=== PATIENT | female | born 1995 | race Caucasian/White ===

== ENCOUNTER → 2018-06-08 13:52 | Observation (INO) ==
[2018-06-08 11:19] LABS: Bilirubin,Urine Negative (Negative); Blood,Urine Negative (Negative); Clarity,Urine Clear (Clear); Color,Urine Yellow (Yellow); Glucose,Urine (UA) Normal (Normal); Ketones,Urine Negative (Negative); Leukocyte Esterase,Urine Small (Negative); Nitrite,Urine Negative (Negative); PH,Urine 6.5 pH Units (5.0-8.0); Protein,Urine Negative (Neg-Trace); Specific Gravity,Urine 1.016 (1.010-1.025); Urobilinogen,Urine Normal (Normal)
[2018-06-08 11:21] LABS: Bacteria,Urine Moderate per hpf (None-Few); Hyaline Casts,Urine None Seen per lpf (None-Few); Squamous Epithelial Cell,Urine Many per lpf (None-Few)
--- NOTE | 2018-06-08 13:49 | Discharge Summary ---
Date of Encounter: 06/08/18 Time of Encounter: 13:48 - Discharge Diagnosis (1) 29 weeks gestation of Priority: Primary Status: Chronic (2) Abdominal pain affecting Priority: Secondary Status: Resolved - Discharge Medications Home Medications: Vits96/Iron Fum/Folic [ Tablet] 1 each PO 06/08/18 [History] Allergies/Adverse Reactions: 3 Allergy/AdvReac Type Severity Reaction Status Date / Time No Known Allergies Allergy Verified 12/24/15 20:56 Data Procedures and tests throughout hospitalization: Laboratory Tests 06/08/18 10:42 Urine Color Yellow Urine Clarity Clear Urine pH 6.5 Ur Specific [place] 1.016 Urine Protein Negative Urine Glucose (UA) Normal Urine Ketones Negative Urine Blood Negative Urine Nitrite Negative Urine Bilirubin Negative Urine Urobilinogen Normal Ur Leukocyte Esterase Small H Urine Microscopic RBC 5-15 H Urine Microscopic WBC 5-15 H Ur Squamous Epith Cells Many H Urine Bacteria Moderate H Hyaline Casts None Seen Ur Culture Indicated? NO. A Labs on day of discharge: Labs from last 24 hours 06/08/18 10:42 Urine Color Yellow Urine Clarity Clear Urine pH 6.5 Ur Specific [place] 1.016 Urine Protein Negative Urine Glucose (UA) Normal Urine Ketones Negative Urine Blood Negative Urine Nitrite Negative Urine Bilirubin Negative Urine Urobilinogen Normal Ur Leukocyte Esterase Small H Urine Microscopic RBC 5-15 H Urine Microscopic WBC 5-15 H Ur Squamous Epith Cells Many H Urine Bacteria Moderate H Hyaline Casts None Seen Ur Culture Indicated? NO. A Date of admission: 06/08/18 10:30 - Patient Status Disposition: Home, Self-Care Condition: Good Functional capacity at discharge: independent ambulation Overall status at discharge: patient is progressing back to baseline - Discharge Instructions Additional Instructions: LABOR AND DELIVERY DISCHARGE INSTRUCTIONS Signs and Symptoms to be Reported to your Doctor Immediately: * Sudden gush, continuous or intermittent lead of fluid from vagina (note the time of gush and color of fluid) * Onset of bright red vaginal bleeding with or without pain (if you had a vaginal exam during this visit you may notice some dark red spotting. This is normal.) * Lower abdominal cramping or backache that is premenstrual-like feeling. * More than 6 contractions in one hour. * Burning during urination, having to urinate more frequently or pain in your mid-back. * A change in the baby's activity. This could be an increase or decrease in activity. * Severe headache which does not go away with tylenol. * Sudden swelling in the face, hands, arms and/or legs. * Upper abdominal pain - sometimes associated with heartburn or nausea and is not relieved by Maalox, Mylanta or Tums. * Dizziness or blurred vision or visual disturbances (seeing stars/lights). * Kick Counts One hour after a meal, lay down on one side in a quiet place. Count the number of darrell the baby moves during an hour. If less than 6 movements, notify your physician. Diet: *Force fluids - 8-10 tall glasses of fluid per day. May include popsicles and jello. *Limit caffeine - this includes chocolate, coffee, tea, any soft drink containing such as all milton, Manuel Yellow and Mountain Dew - Diet and Activity Activity: increase activity as tolerated Diet: advance to your usual diet Hospital Course EMISSION TECHNICIAN Time Attestation: Total time spent providing and/or coordinating discharge services: Exam - Constitutional General appearance IM: A&O X 3 - Respiratory Respiratory exam: Present: CTAB - Cardiovascular Cardiovascular exam IM: Present: RRR - GI/Abdominal GI/Abdominal exam IM: soft - Extremities Exam Extremities exam IM: Present: full ROM - Neurological Exam Neurological exam: CN II-XII intact - VTE Reasons for not Prescribing Prophylaxis: Treatment not Indicated - Low risk for VTE - Attending Attestation marvin zhnag md facog
[2018-06-09 08:34] LABS: Amphetamine Screen,Urine Negative ng/mL (Cutoff=1000); Barbiturate Screen,Urine Negative ng/mL (Cutoff=200); Benzodiazepines Screen,Urine Negative ng/mL (Cutoff=200); Cannabinoid Screen,Urine Negative ng/mL (Cutoff = 50); Cocaine Screen,Urine Negative ng/mL (Cutoff= 300); Opiate Screen,Urine Negative ng/mL (Cutoff=300); Phencyclidine Screen,Urine Negative ng/mL (Cutoff=25)
== END | disposition home or self-care (01) ==
LOC: 1NENULAB
PROVIDERS: ADMIT Advanced Practice Midwife; ATTEND Advanced Practice Midwife

== ENCOUNTER 2018-08-12 00:40 | Inpatient (IN) ==
[~2018-08-12 00:40] MED LIST: *HR* Nalbuphine 10 MG/ML AMPUL IVP PRN; Famotidine 20 MG/2 ML VIAL IVP PRN; Metoclopramide 10 MG/2 ML VIAL IVP PRN; Naloxone 0.4 MG/ML INJ IVP PRN; Ondansetron 4 MG/2 ML VIAL IVP PRN
[2018-08-12] MEDS ORDERED: Ringers Solution, Lactated 1,000 ML IVC SCH (00:45)
[2018-08-12 01:13] LABS: Amphetamine Screen,Urine Negative ng/mL (Cutoff=1000); Barbiturate Screen,Urine Negative ng/mL (Cutoff=200); Benzodiazepines Screen,Urine Negative ng/mL (Cutoff=200); Cannabinoid Screen,Urine Negative ng/mL (Cutoff = 50); Cocaine Screen,Urine Negative ng/mL (Cutoff= 300); Opiate Screen,Urine Negative ng/mL (Cutoff=300); Phencyclidine Screen,Urine Negative ng/mL (Cutoff=25)
[2018-08-12 01:19] LABS: Hematocrit 37.2 % (35.3-44.9); Hemoglobin 12.5 g/dL (11.5-15.4); Mean Corpuscular HGB Conc 33.6 g/dL (31.6-35.5); Mean Corpuscular Volume 89.2 fL (83.0-100.0); Red Blood Count 4.17 M/mcL (3.82-4.97)
[2018-08-12 01:20] LABS: Basophils # 0.1 K/mcL (0.0-0.2); Basophils % 0.5 %; Eosinophils # 0.2 K/mcL (0.0-0.6); Eosinophils % 1.5 %; Immature Granulocytes % 0.4 % (0-4); Lymphocytes # 2.3 K/mcL (0.6-4.6); Lymphocytes % 21.4 %; Mean Platelet Volume 11.2 fL (9.4-12.4); Monocytes # 0.8 K/mcL (0.0-1.3); Monocytes % 7.1 %; Neutrophils # 7.5 K/mcL (1.6-8.9); Platelet Count 194 K/mcL (140-400); Red Cell Distribution Width 12.7 % (11.5-14.5); Segmented Neutrophils % 69.1 %
--- NOTE | 2018-08-12 01:32 | OB/GYN History & Physical ---
Date of Encounter: 08/12/18 Time of Encounter: 01:25 Assessment and Plan (1) 38 weeks gestation of Current visit: Yes Status: Acute Admit to labor and delivery for SROM GBS negative Expectant management, augment as necessary. May have IV pain medicine or epidural when patient desires Anticipate (2) NST (non-stress test) reactive Current visit: Yes Status: Acute FHR 130 bpm, moderate variability, +15 x 15 accelerations, no decelerations. Intermittent monitoring until Pitocin initiated (3) Spontaneous rupture of amniotic membranes Current visit: Yes Status: Acute GBS negative Clear fluid Expectant management, augment with Pitocin if needed. History of Present Illness Chief complaint: SROM HPI: Ms. Ellison is a 23 year old female at 38 weeks 3 days gestation who arrives with complaints of SROM at 2330. She endorses positive movement, denies bleeding. She is a patient of Dr. Gaviria with [facility]. She arrived to [place] after being pulled over by the police for speeding who then brought her here. Her has been uncomplicated. Blood type A+ GBS negative RPR nonreactive Hepatitis C nonreactive HIV-negative Rubella non-immune Varicella negative HBsAg negative GC/chlamydia negative Past Med Surg Social Fam HX - Past Medical History Source: patient Medical history: other Additional medical history: HYPERSENSITIVITY PNEOMONITIS W/CHEST TUBE PLACEMENT IN CHILDHOOD Psychiatric history: no psych history - Past Surgical History Additional surgical history: lung bioposy - Social History Smoking Status: Never smoker Smokeless Tobacco Status: No Alcohol use: none Drug use: none Current living situation: Home - Independent Activity Level: Independent ambulation Recent Out of Country Travel Within the Last 8 Weeks: No Exposure or Possible Exposure to Illness During Travel: No - Family History Mother Living Status: Still Living Hx Family Cardiac Disorders: No Hx Family Respiratory Disorders: No Hx Family Cancer: No Hx Family GI Disorders: No Hx Family Genitourinary Disorders: No Hx Family Endocrine Disorder: No Hx Family Musculoskeletal Disorders: No Hx Family Neuromuscular Disorders: No Hx Family Neurologic Disorders: No Hx Family HEENT Disorders: No Hx Family Autoimmune Disorders: No Hx Family Reproductive Disorders: No Hx Family Psychosocial Disorders: No Obstetrical History - Pregnancies : 1 Para: 0 Term: 0 : 0 Ab's: 0 Livin Medications and Allergies Vits96/Iron Fum/Folic [ Tablet] 1 each PO 06/08/18 [History] Allergy/AdvReac Type Severity Reaction Status Date / Time No Known Allergies Allergy Verified 12/24/15 20:56 Exam - Constitutional Constitutional: well developed, well nourished, no acute distress, average body habitus - HEENT HEENT: Mucus Membranes Moist - Neck Neck exam: full ROM, normal inspection - Lungs Respiratory exam: CTAB - Cardiovascular Cardiovascular exam: RRR, +S1, +S2 - Breasts Breast: bilateral: normal - Abdomen Abdomen: Present: bowel sounds normal, gravid, non tender - Extremities Extremities exam: full ROM, normal inspection, pedal edema, warm, radial pulses palpable and symmetrical Deep Tendon Reflex Grade: 1+ Diminished - Vulva Vulva: bilateral: normal - Vagina Vagina: Present: normal moisture, discharge (SROM) - Cervix Dilation: 3 (per RN exam) Effacement: 90 - Uterus Uterus exam: Present: normal size, normal contour Results Result Diagrams: 08/12/18 00:45 All other labs normal. - VTE Reasons for not Prescribing Prophylaxis: Treatment not Indicated - Low risk for VTE
[2018-08-12] MEDS ORDERED: Oxytocin 20 units/ LR 1000 mL 20 UNIT/1,000 ML BAG IVC SCH ×2 (01:45→17:09)
[2018-08-12] MEDS ORDERED: Bupivacaine-MPF 0.25% 10 ML VIAL EP ONE (05:08)
[2018-08-12] MEDS ORDERED: *HR* FentaNYL (PF) 100 MCG/2 ML VIAL EP ONE (05:08)
[2018-08-12] MEDS ORDERED: Bupivacaine-MPF 0.25% 10 ML VIAL ONE (05:10)
[2018-08-12] MEDS ORDERED: *HR* FentaNYL (PF) 100 MCG/2 ML VIAL ONE (05:10)
[2018-08-12] MEDS ORDERED: Lidocaine -MPF 2% 5 ML VIAL ONE (05:10)
[2018-08-12] MEDS ORDERED: Epidural Premix (fent/bupiv) 110 ML EP SCH (05:15)
--- NOTE | 2018-08-12 05:47 | Anesthesia Evaluation PreOp ---
Date of Encounter: 08/12/18 Time of Encounter: 05:45 - Past History Planned Operation: AMY Cardiac History: Denies any Significant Hx Pulmonary History: Denies Any Significant HX ADVERTISING SUPERVISOR History: Denies Any Significant HX Other Medical History: Denies Any Significant HX Anesthesia History: No Prior Anesthetic Complications (never had any procedure requiring NA; denies personal and family h/o GA) : Yes Alcohol Use: none Drug use: none Medications and Allergies Vits96/Iron Fum/Folic [ Tablet] 1 each PO 06/08/18 [History] Allergy/AdvReac Type Severity Reaction Status Date / Time No Known Allergies Allergy Verified 12/24/15 20:56 - Meds/Allergy Pre-op Review Medications Reviewed: Yes Allergies Reviewed: Yes Beta Blockers on Current Med List: No Anesthesia Results - Labs 08/12/18 00:45 Anesthesia Exam 141/74, HR 67, RR 18 O2 Sat Height 1.63 m Weight 115 kg NPO (# of Hours): solids > 7hrs Pain Scale: 8 Pain Scale Used: Numeric (1 - 10) - HEENT Pupil (Motor): Pupils equal Mallampati: II Teeth: Normal Oral Opening: Greater than 3 - ADVERTISING SUPERVISOR LOC: Oriented ADVERTISING SUPERVISOR Motor: Normal RUE, Normal LUE, Normal RLE, Normal LLE, Normal Face ADVERTISING SUPERVISOR Sensory: Normal: RUE, LUE, RLE, LLE, Face - Cardiac Rhythm: Regular Murmur: None - Pulmonary Breath Sounds: bilateral Clear Respiratory Effort: Symmetrical Anesthesia Assess/Plan ASA Score: 3 (BMI > 40) Level of consciousness: Cooperative, Oriented, Tranquil Anesthetic Plan: Epidural Autologous Blood: No Monitoring Plan: Standard Monitors Recovery Plan: Other
--- NOTE | 2018-08-12 05:51 | Anesthesia Procedures ---
Addendum entered and electronically signed by Arcenio Dejesus CRNA 08/12/18 15:13: Delivery Date: 08/12/18 Delivery Time: 14:15 Original Note: Date of Encounter: 08/12/18 Time of Encounter: 05:49 Procedures: Anesthesia - Epidural/Spinal Patient ID/Chart reviewed: Yes Patient examined: Yes OB Eval: Gestational age: 38 weeks 3 days OB Eval: : 1 OB Eval: Hx Para: 0 OB Eval: Dilated at (cm): 5 OB Eval: Contractions: Non-stressed pattern Consent Obtained: Yes Supplemental Oxygen: None/Room Air Site Prep: Aseptic Technique, Sterile prep and drape, Povidone-Iodine 1% Patient position: upright Local Anesthetic: Lidocaine 1% Amount of Local Anesthetic used: 3 Touhy Needle Gauge: 18 Touhy Needle Depth (cm): 6 Catheter Depth at Skin (cm): 11 Test Dose (1.5% Lido + Epi): Volume given (mls): 5 Test Dose Result: Negative Loading Dose: 0.25% Marcaine (mls): 5 Loading Dose: Fentanyl (mcg): 100 Loading Dose Administered: Thru Catheter Infusion Med: 0.125% Bupivacaine w/ 2 mcg/ml Fentanyl Infusion Rate (mls/hr): 14 (w/ demand bolus of 6mL q30min PRN) Catheter Secured in Place: Tegaderm, Tape Interspace Used: L3-L4 Loss of Resistance (JULISSA): Yes Blood: No CSF: No Paresthesia: No Procedure: successful on 1st attempt; patient tolerated procedure well; VSS Vitals + FHT's: see Clarice MORALES's electronic records for VS entry
[2018-08-12] MEDS ORDERED: EPHEDrine 50 MG/ML VIAL ONE (05:59)
--- NOTE | 2018-08-12 06:15 | OB Labor Progress Note ---
Date of Encounter: 08/12/18 Time of Encounter: 06:11 Labor Progress Note - Subjective Subjective: Patient comfortable after epidural placement - Vital Signs Vital Signs: BP low after epidural placement AFebrile - Cervix Cervix: 5/90/-1 - Heart Tones Heart Tones: FHR 125 bpm, moderate variability, +15x15 accels, no decels Directly after epidural placement, BP dropped and 7 minute FHR deceleration noted. IV Ephedrine given, fluid bolus initiated, Pitocin discontinued, O2 applied. Position changes completed with return to baseline after interventions. - [place]: Irregular contractions. RN requests IUPC - Interventions Interventions: SVE IUPC placed for accurate contraction monitoring Intrauterine resuscitation measures completed. - Plan Physician notified: Yes Physician notified details: Dr. Lundy aware of FHR and plan of care. Plan: Restart Pitocin in 30 minutes with reactive FHR tracing Anticipate
--- NOTE | 2018-08-12 06:59 | Event Note ---
Date of Encounter: 08/12/18 Time of Encounter: 06:[address] Lundy on patient status and current FHR tracing as well as previous decels.
--- NOTE | 2018-08-12 14:52 | OB/GYN Procedure Note ---
Delivery - Delivery Date: 08/12/18 Provider: Gloria Shea Intrapartum events: none Delivery induction: none Delivery augmentation: pitocin Delivery monitor: external FHT, external uterine, internal uterine Anesthesia: epidural Quantitated Blood Loss: 300 - (s) A Infant Delivery Date: 08/12/18 Delivery Time: 14:15 Presentation: vertex Position: SOO Route of delivery: Gender: Female Viability: Viable Pounds: 7 Ounces: 15 Weight Gram: 3.61 kg at 1 minute: 8 at 5 mins: 9 Shoulder Dystocia: not encountered Specimens collected: cord blood Placenta: spontaneous Cord: nuchal cord, 3 umbilical vessels, nuchal reduced - Repair Episiotomy: none Laceration Description: Superficial (perineal - repaired with 4-0 monocryl) - Complications Delivery complications: none Delivery comments: This is a 23 year old G1 now P1 who was admitted for spontaneous rupture of membranes at 2330 on 08/11/18. She progressed with Pitocin augmentation to the second stage of labor. She pushed for 1 hour. She delivered a viable, female , "SOO [place] over a superficial perineal laceration. A nuchal cord was identified. The umbilical cord was easily reduced around the head and delivery continued uncomplicated. A shoulder dystocia was not encountered. The infant was placed on the maternal abdomen and allowed to transition spontaneously. The cord was double clamped by hide buyer after pulsations ceased and cut by grandmother of the baby. scores were 8 at 1 minute and 9 at 5 minutes. The weighed 7 lbs. 15 oz. (3610 g). The placented delivered spontaneously ([place]) with a 3-vessel cord. Inspection revealed a superficial perineal laceration. The laceration was repaired with a 4-0 Monocryl. The uterus was firm with no active bleeding. EBL was 300 mL. Placenta and umbilical artery blood gases were not sent. There were no complications during the procedure. Mom and baby are skin to skin following delivery. - Disposition Mom disposition: stable in LDR disposition: stable in LDR
[2018-08-12] MEDS ORDERED: Acetaminophen 325 MG TABLET PO PRN (17:09)
[2018-08-12] MEDS ORDERED: Benzocaine/Menthol 56 GM AEROSOL SPRAY TP PRN (17:09)
[2018-08-12] MEDS: Ibuprofen 600 MG TABLET PO PRN (18:27)
[2018-08-13 08:06] LABS: Basophils # 0.1 K/mcL (0.0-0.2); Basophils % 0.5 %; Eosinophils # 0.1 K/mcL (0.0-0.6); Hematocrit 32.1 % (35.3-44.9); Immature Granulocytes % 0.5 % (0-4); Lymphocytes # 1.9 K/mcL (0.6-4.6); Mean Corpuscular HGB Conc 32.4 g/dL (31.6-35.5); Mean Corpuscular Hemoglobin 29.5 pg (28.0-33.3); Mean Corpuscular Volume 91.2 fL (83.0-100.0); Mean Platelet Volume 10.7 fL (9.4-12.4); Monocytes # 0.7 K/mcL (0.0-1.3); Monocytes % 6.7 %; Neutrophils # 8.1 K/mcL (1.6-8.9); Platelet Count 132 K/mcL (140-400); Red Blood Count 3.52 M/mcL (3.82-4.97); Red Cell Distribution Width 13.2 % (11.5-14.5); Segmented Neutrophils % 74.3 %
[2018-08-13] MEDS: Ibuprofen 600 MG TABLET PO PRN (08:19)
[2018-08-13 08:27] LABS: Hemoglobin 10.4 g/dL (11.5-15.4)
[2018-08-13] MEDS ORDERED: Prenatal Vit/FA 1 EACH TABLET PO SCH (09:00)
[2018-08-13 11:46] VITALS: BP 111/76
--- NOTE | 2018-08-13 13:14 | Discharge Summary ---
Date of Encounter: 08/13/18 Time of Encounter: 13:11 - Discharge Diagnosis (1) Status post vaginal delivery Priority: Secondary Status: Acute Comments: Status post vaginal delivery day 1 Meeting day 1 milestones Pain is well controlled Ambulating without dizziness Appetite is normal Voiding and passing flatus Lochia is light Mood is appropriate Healthy female BW 7lb 15oz with 8/9 doing well with formula feeding Discussed safe spacing Undecided on contraception, advised barrier contraceptive until follow up Well to discharge to home Follow up in 4 weeks (2) 38 weeks gestation of Priority: Primary Status: Acute Comments: Now Delivered at 38w3d after SROM - Discharge Medications Prescriptions: RX: Ibuprofen [Motrin] 600 mg PO Q6HR PRN #30 tablet PRN Reason: Cramping RX: Docusate [Colace] 100 mg PO BID #30 capsule RX: Ferrous Sulfate 325 mg PO DAILY #90 tablet Home Medications: RX: Vits96/Iron Fum/Folic [ Tablet] 1 each PO 06/08/18 [History] RX: Acetaminophen [Tylenol] 650 mg PO Q6HR PRN tablet 08/13/18 [Rx] RX: Benzocaine/Menthol [place] [Dermoplast [place]] 1 appl TP QID PRN aerosol 08/13/18 [Rx] RX: Docusate [Colace] 100 mg PO BID #30 capsule 08/13/18 [Rx] RX: Ferrous Sulfate 325 mg PO DAILY #90 tablet 08/13/18 [Rx] RX: Ibuprofen [Motrin] 600 mg PO Q6HR PRN #30 tablet 08/13/18 [Rx] Allergies/Adverse Reactions: Allergy/AdvReac Type Severity Reaction Status Date / Time No Known Allergies Allergy Verified 12/24/15 20:56 Data Procedures and tests throughout hospitalization: Laboratory Tests 08/12/18 08/12/18 08/13/18 00:45 00:45 07:42 WBC 10.9 10.9 RBC 4.17 3.52 L Hgb 12.5 10.4 L D Hct 37.2 32.1 L MCV 89.2 91.2 MCH 30.0 29.5 MCHC 33.6 32.4 RDW 12.7 13.2 Plt Count 194 132 L MPV 11.2 10.7 Immature Gran % 0.4 0.5 Seg Neutrophils % 69.1 74.3 Lymphocytes % 21.4 17.0 Monocytes % 7.1 6.7 Eosinophils % 1.5 1.0 Basophils % 0.5 0.5 Neutrophils # 7.5 8.1 Lymphocytes # 2.3 1.9 Monocytes # 0.8 0.7 Eosinophils # 0.2 0.1 Basophils # 0.1 0.1 Urine Opiates Screen Negative Ur Barbiturates Screen Negative Ur Phencyclidine Scrn Negative Ur Amphetamines Screen Negative U Benzodiazepines Scrn Negative Urine Cocaine Screen Negative U Marijuana (THC) Screen Negative Ur Drug Screen Interp See Below Labs on day of discharge: Labs from last 24 hours 08/13/18 07:42 WBC 10.9 RBC 3.52 L Hgb 10.4 L D Hct 32.1 L MCV 91.2 MCH 29.5 MCHC 32.4 RDW 13.2 Plt Count 132 L MPV 10.7 Immature Gran % 0.5 Seg Neutrophils % 74.3 Lymphocytes % 17.0 Monocytes % 6.7 Eosinophils % 1.0 Basophils % 0.5 Neutrophils # 8.1 Lymphocytes # 1.9 Monocytes # 0.7 Eosinophils # 0.1 Basophils # 0.1 Date of admission: 08/12/18 02:17 Primary care physician: PCP NONE Consults: 08/12/18 17:09 Consult to Mud Mill Tender [CONS] Routine Comment: Vaginal delivery, consult needed Discharging clinician: Zaina Penaloza Anticipated date of discharge: 08/13/18 - Patient Status Disposition: Home, Self-Care Condition: Good Functional capacity at discharge: independent ambulation Overall status at discharge: patient is back to baseline - Discharge Instructions Follow Up With: NONE,PCP [Primary Care Provider] - Hudson Liu MD [Non-Partnered Physician] - - Diet and Activity Activity: resume usual activities as tolerated Diet: advance to your usual diet Hospital Course Reason for admission: rupture of membranes Delivery: Episiotomy: none Laceration: other (superficial perineal laceration repaired) Other procedures: none complications: perineal laceration Discharge diagnosis: IUP at term delivered baby: female Hospital course: This is a 23 year old G1 now P1 who was admitted for spontaneous rupture of membranes at 2330 on 08/11/18. She progressed with Pitocin augmentation to the second stage of labor. She pushed for 1 hour. She delivered a viable, female , "Ting", SOO over a superficial perineal laceration. A nuchal cord was identified. The umbilical cord was easily reduced around the head and delivery continued uncomplicated. A shoulder dystocia was not encountered. The was placed on the maternal abdomen and allowed to transition spontaneously. The cord was double clamped by bundle tier after pulsations ceased and cut by grandmother of the baby. scores were 8 at 1 minute and 9 at 5 minutes. The weighed 7 lbs. 15 oz. (3610 g). The placented delivered spontaneously ([place]) with a 3-vessel cord. Inspection revealed a superficial perineal laceration. The laceration was repaired with a 4-0 Monocryl. The uterus was firm with no active bleeding. EBL was 300 mL. Placenta and umbilical artery blood gases were not sent. There were no complications during the procedure. Mom and baby are skin to skin following delivery. Time Attestation: Total time spent providing and/or coordinating discharge services: Time Spent: Greater than 30 minutes Exam - Constitutional Vitals: Temp Pulse Resp BP Pulse Ox 97.5 F L 82 18 111/76 97 08/13/18 08:25 08/13/18 08:25 08/13/18 08:25 08/13/18 08:25 08/13/18 08:25 General appearance IM: A&O X 3, pleasant, no acute distress, answers questions appropriately - Respiratory Respiratory exam: Present: CTAB. Absent: rales, respiratory distress, rhonchi, wheezes - Cardiovascular Cardiovascular exam IM: Present: RRR, +S1, +S2. Absent: irregular rhythm - GI/Abdominal GI/Abdominal exam IM: normal bowel sounds - Rectal Rectal exam: deferred - Uterine Tone: Firm Uterus Position: 1 Finger Below Umbilicus - Extremities Exam Extremities exam IM: Present: normal inspection. Absent: calf tenderness, pedal edema - Neurological Exam Neurological exam: CN II-XII intact, oriented X3, no focal deficits - Psychiatric Additional comments: mood is appropriate - Attending Attestation I examined this patient and my medical decision-making was reviewed with the Resident Physician. I agree with the documented findings, disposition and treatment plan as described. Westley Sarabia CNM
[2018-08-13] MEDS ORDERED: Measles/Mumps/Rubella Vacc 0.5 ML VIAL SQ ONE (14:41)
== END 2018-08-13 15:42 | disposition home or self-care (01) | DRG 807 ==
LOC: 1NENULAB → 1NENUOBS 17:07
PROVIDERS: ADMIT Registered Nurse; ATTEND Registered Nurse